=== PATIENT | male | born 1945 | race Caucasian/White ===

== ENCOUNTER 2017-10-27 23:44 | Emergency (ER) | payer BC, OTHER ==
[~2017-10-27] VITALS: Ht 175.3 cm; Wt 77.1 kg
--- NOTE | ~2017-10-27 | EKG ---
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
[~2017-10-27 23:44] MED LIST: ASPIRIN EC81 M1 PO; BENICAR20 MG PO; DIAZIDE PO; LIPITOR20 MG PO; LOPRESSOR25 PO
[2017-10-28] MEDS ORDERED: ATENOLOL 100MG100 MG PO (00:03)
[2017-10-28] MEDS ORDERED: SINEMET 25-1001 EAC1 PO (00:04)
[2017-10-28] MEDS ORDERED: ARICEPT 5 MG TAB5 MG PO ×4 (00:04→00:08)
[2017-10-28] MEDS ORDERED: PLAVIX 75 MG TA75 M1 PO (00:04)
[2017-10-28] MEDS ORDERED: COZAAR 50 MG TA50 M2 PO (00:06)
[2017-10-28] MEDS ORDERED: HYDROCHLOROTH12.5 M1 PO (00:06)
[2017-10-28 00:27] LABS: URINE BILIRUBIN NEGATIVE (Negative); URINE BLOOD TRACE (Negative); URINE GLUCOSE-RANDOM* NEGATIVE (Negative); URINE KETONES NEGATIVE (Negative); URINE LEUKOCYTES-REFLEX NEGATIVE (Negative); URINE PROTEIN (DIPSTICK) NEGATIVE (Negative); URINE SPECIFIC GRAVITY <= 1.005 (1.005-1.035); URINE UROBILINOGEN 0.2 E.U./dl (0.2-1.0)
[2017-10-28 00:31] LABS: URINE COLOR STRAW
[2017-10-28 00:35] LABS: AMP/METHAMP Negative (Negative); BARBITURATES Negative (Negative); BENZODIAZEPINES Negative (Negative); COCAINE Negative (Negative); METHADONE Negative (Negative); OPIATES Negative (Negative); PCP Negative (Negative)
[2017-10-28 00:43] LABS: ABSOLUTE NEUTROPHILS 6.5 thou/uL (1.4-8.2); BASOPHILS 0.5 % (0.0-2.0); EOSINOPHILS 3.8 % (0.0-3.0); HEMATOCRIT 41.5 % (42.0-52.0); HEMOGLOBIN 14.4 gm/dL (14.0-18.0); LYMPHOCYTES 15.6 % (24.0-44.0); MANUAL DIFF NO; MCH 33.6 pg (26.0-34.0); MCHC 34.8 g/dL (28.0-37.0); MCV 96.6 fL (80.0-100.0); MONOCYTES 10.5 % (1.0-8.0); PLATELET COUNT 169 thou/uL (150-400); POLYS 69.6 % (36.0-66.0); RBC 4.29 mil/uL (4.50-6.00); RDW 12.8 % (10.5-14.5); WBC 9.3 thou/uL (4.0-11.0)
[2017-10-28 00:45] LABS: ANION GAP 11 mmol/L (7-16); BUN 12 mg/dL (7-18); CALCIUM 8.6 mg/dL (8.5-10.1); CHLORIDE 101 mmol/L (98-107); CO2 25 mmol/L (21-32); GLUCOSE 105 mg/dL (74-106); POTASSIUM 3.4 mmol/L (3.5-5.1); SODIUM 137 mmol/L (136-145)
[2017-10-28 00:52] LABS: APTT 28.5 Seconds (24.5-32.8); INR 1.1; PROTIME 11.2 Seconds (9.3-11.4)
[2017-10-28 00:54] LABS: TROPONIN-I < 0.04 ng/mL (<0.06)
[2017-10-28 01:41] VITALS: BP 190/101
== END 2017-10-28 01:43 | disposition short-term general hospital (02) ==
LOC: ER 23:44
PROVIDERS: Emergency Medicine
DX: S01.01XA Laceration without foreign body of scalp, initial encounter (principal); S06.5X0A Traumatic subdural hemorrhage without loss of consciousness, initial encounter; W06.XXXA Fall from bed, initial encounter; Y93.89 Activity, other specified; Y92.89 Other specified places as the place of occurrence of the external cause; Y99.8 Other external cause status

== ENCOUNTER 2018-10-01 13:22 | Inpatient (IN) | payer OTHER ==
[~2018-10-01] VITALS: Ht 175.3 cm; Wt 71.7 kg
[~2018-10-01 13:22] MED LIST changes: +ARICEPT 5 MG TAB5 MG PO; +ATENOLOL 100MG100 MG PO; +COZAAR 50 MG TA50 M2 PO; +HYDROCHLOROTH12.5 M1 PO; +PLAVIX 75 MG TA75 M1 PO; +SINEMET 25-1001 EAC1 PO
[2018-10-01 14:02] LABS: ABSOLUTE NEUTROPHILS 16.1 thou/uL (1.4-8.2); BASOPHILS 0.2 % (0.0-2.0); EOSINOPHILS 0.1 % (0.0-3.0); HEMATOCRIT 49.4 % (42.0-52.0); HEMOGLOBIN 16.9 gm/dL (14.0-18.0); LYMPHOCYTES 4.1 % (24.0-44.0); MCH 33.3 pg (26.0-34.0); MCHC 34.2 g/dL (28.0-37.0); MCV 97.1 fL (80.0-100.0); MONOCYTES 9.5 % (1.0-8.0); PLATELET COUNT 189 thou/uL (150-400); POLYS 86.1 % (36.0-66.0); RBC 5.09 mil/uL (4.50-6.00); RDW 13.3 % (10.5-14.5); WBC 18.7 thou/uL (4.0-11.0)
[2018-10-01 14:34] LABS: CALCIUM 9.7 mg/dL (8.5-10.1); CREATININE 3.3 mg/dL (0.7-1.3); POTASSIUM 3.6 mmol/L (3.5-5.1)
[2018-10-01 14:37] LABS: APTT 26.6 Seconds (24.5-32.8); INR 1.2; PROTIME 12.3 Seconds (9.3-11.4)
[2018-10-01 15:14] LABS: URINE BILIRUBIN NEGATIVE (Negative); URINE BLOOD TRACE (Negative); URINE CLARITY CLEAR; URINE COLOR YELLOW; URINE GLUCOSE-RANDOM* NEGATIVE (Negative); URINE KETONES NEGATIVE (Negative); URINE LEUKOCYTES-REFLEX NEGATIVE (Negative); URINE NITRITE-REFLEX NEGATIVE (Negative); URINE PROTEIN (DIPSTICK) TRACE (Negative); URINE SPECIFIC GRAVITY 1.025 (1.005-1.035); URINE UROBILINOGEN 0.2 E.U./dl (0.2-1.0)
[2018-10-01 17:59] VITALS: BP 122/74
[2018-10-01 18:30] VITALS: BP 136/80
[2018-10-01 18:42] VITALS: BP 136/80
[2018-10-01 19:55] VITALS: BP 134/78
[2018-10-02 00:28] VITALS: BP 119/70
[2018-10-02 04:20] VITALS: BP 127/69
[2018-10-02 06:19] LABS: HEMATOCRIT 41.6 % (42.0-52.0); MCH 33.3 pg (26.0-34.0); MCHC 34.3 g/dL (28.0-37.0); MCV 96.9 fL (80.0-100.0); RBC 4.29 mil/uL (4.50-6.00); RDW 13.1 % (10.5-14.5); WBC 13.6 thou/uL (4.0-11.0)
[2018-10-02 06:22] LABS: HEMOGLOBIN 14.3 gm/dL (14.0-18.0)
[2018-10-02 06:37] LABS: ALBUMIN 2.7 g/dL (3.4-5.0); CALCIUM 8.9 mg/dL (8.5-10.1); PHOSPHORUS 3.7 mg/dL (2.5-4.9); POTASSIUM 3.3 mmol/L (3.5-5.1)
[2018-10-02 06:40] LABS: CREATININE 1.9 mg/dL (0.7-1.3)
[2018-10-02 06:50] LABS: CHOLESTEROL 133 mg/dL (<200); HDL CHOLESTEROL 43 mg/dL (>40); LDL CHOLESTEROL 79 mg/dL (<100); TC:HDL 3.1 Ratio (Not establshd); TRIGLYCERIDE 59 mg/dL (<150); VLDL 12 mg/dL (<40)
[2018-10-02 07:03] LABS: FOLIC ACID 9.3 ng/mL (8.6-58.9); TSH 0.282 uIU/mL (0.358-3.740)
[2018-10-02 08:29] VITALS: BP 153/76
[2018-10-02 15:46] VITALS: BP 116/53
[2018-10-02 20:08] VITALS: BP 124/78
[2018-10-03 04:50] VITALS: BP 145/77
[2018-10-03 06:39] LABS: ALBUMIN 2.2 g/dL (3.4-5.0); CREATININE 1.2 mg/dL (0.7-1.3); PHOSPHORUS 2.5 mg/dL (2.5-4.9); POTASSIUM 3.3 mmol/L (3.5-5.1)
[2018-10-03 08:30] VITALS: BP 144/71
[2018-10-03 16:00] VITALS: BP 145/81
[2018-10-03 19:57] VITALS: BP 147/83
[2018-10-04 03:21] VITALS: BP 155/84
[2018-10-04 08:00] VITALS: BP 149/92
[2018-10-04 08:23] LABS: ABSOLUTE NEUTROPHILS 4.9 thou/uL (1.4-8.2); BASOPHILS 0.6 % (0.0-2.0); HEMATOCRIT 38.3 % (42.0-52.0); MCH 32.8 pg (26.0-34.0); MCHC 33.9 g/dL (28.0-37.0); MCV 96.6 fL (80.0-100.0); MONOCYTES 10.9 % (1.0-8.0); PLATELET COUNT 165 thou/uL (150-400); POLYS 67.5 % (36.0-66.0); RBC 3.96 mil/uL (4.50-6.00); RDW 12.4 % (10.5-14.5); WBC 7.2 thou/uL (4.0-11.0)
[2018-10-04 08:49] LABS: CALCIUM 7.9 mg/dL (8.5-10.1); CREATININE 0.9 mg/dL (0.7-1.3); MAGNESIUM 1.4 mg/dL (1.8-2.4)
[2018-10-04 09:00] VITALS: BP 149/92
[2018-10-04] MEDS ORDERED: CEFUROXIME250 MG PO (09:36)
[2018-10-04] MEDS ORDERED: FLOMAX0.4 MG PO (09:36)
[2018-10-04] MEDS ORDERED: PAIN & FEVER325 MG PO (09:36)
[2018-10-04] MEDS ORDERED: COLACE 100 MG100 MG PO (09:37)
== END 2018-10-04 13:03 | DRG 871 ==
LOC: ER 13:22 → EROBS 17:32 → 3W 17:32
PROVIDERS: Emergency Medicine; Hospitalist; Internal Medicine; Nurse Practitioner Family
DX: A41.9 Sepsis, unspecified organism (principal); E43 Unspecified severe protein-calorie malnutrition; N17.9 Acute kidney failure, unspecified; D69.1 Qualitative platelet defects; T45.525A Adverse effect of antithrombotic drugs, initial encounter; I10 Essential (primary) hypertension; E78.00 Pure hypercholesterolemia, unspecified; G20 Parkinson's disease; F02.80 Dementia in other diseases classified elsewhere, unspecified severity, without behavioral disturbance, psychotic disturbance, mood disturbance, and anxiety; R49.8 Other voice and resonance disorders; N40.1 Benign prostatic hyperplasia with lower urinary tract symptoms; R33.8 Other retention of urine; R29.6 Repeated falls; K59.00 Constipation, unspecified; E05.90 Thyrotoxicosis, unspecified without thyrotoxic crisis or storm; E87.6 Hypokalemia; I25.10 Atherosclerotic heart disease of native coronary artery without angina pectoris; Z79.82 Long term (current) use of aspirin; Z79.899 Other long term (current) drug therapy; Z87.01 Personal history of pneumonia (recurrent); Z86.73 Personal history of transient ischemic attack (TIA), and cerebral infarction without residual deficits; Z68.23 Body mass index [BMI] 23.0-23.9, adult; W18.39XA Other fall on same level, initial encounter; Y93.89 Activity, other specified; Y92.89 Other specified places as the place of occurrence of the external cause; Y99.8 Other external cause status
CPT/HCPCS: 10879